=== PATIENT | female | born 1985 | race Caucasian/White ===

== ENCOUNTER 2016-10-05 08:46 | Emergency (ER) | payer SELFPAY ==
[~2016-10-05] VITALS: Wt 69.0 kg
[~2016-10-05 08:46] MED LIST: HYDR-842 PO
--- NOTE | 2016-10-05 10:46 | RADRPT ---
PROCEDURE: US Obstetrical 1st Trimester CLINICAL INDICATION: Vaginal bleeding TECHNIQUE: Multiple real-time images were acquired of the patient's maternal abdomen utilizing a curved array transducer. COMPARISON: None FINDINGS: There is a well implanted gestational sac within the fundus of the uterus with a mean sac diameter o f 2.64 cm which corresponds to a gestational sac age of 7 weeks 4 days. A yolk sac is identified. T here is a single pole with a crown-rump length of 0.66 cm which corresponds to a gestational a ge of 6 weeks 4 days. There is positive cardiac activity being a t 152 beats per minute. The right ovary measures 3.4 x 1.9 x 1.9 cm. The left ovary measures 2.7 x 2.5 x 1.5 cm. Vascular flow is demonstrated in each ovary. No adnexal mass or free fluid is identified IMPRESSION: 1. Single live intrauterine fetus which by ultrasound corresponds to a gestational age of 7 weeks 1 day plus or minus 3 days. The estimated date of delivery based on today's sonogram is 05/23/2017. 2. No adnexal mass or free fluid is identified. Physician Garth Date Time Electronically viewed and signed by Physician Garth on 10/05/2016 10:46 RH/
[2016-10-05] MEDS ORDERED: ONDA4TAB14 PO (10:52)
--- NOTE | 2016-10-05 10:56 | ERD ---
ER Documentation Chief Complaint Date/Time DATE: 10/05/16 TIME: 10:53 Chief Complaint VAG BLEED FOR THE PAST FEW DAYS. SMALL AMOUNT. NO DYSURIA HPI This 31-year-old female who is here for vaginal bleeding. Patient had some vaginal spotting for the past 3 days. She states she is 7 weeks by dates. Is having some cramps but no clots no back pain no fever no syncope dizziness shortness of breath or palpitations. She says the bleeding has been relatively constant for 3 days at a light spot but cramps are intermittent. She has not seen her resident hall director or had an ultrasound thus far. ROS All systems reviewed and are negative except as per history of present illness. Medications Home Meds Active Scripts Ondansetron (Ondansetron Odt) 4 Mg Tab.rapdis, 4 MG PO Q6H Y for NAUSEA AND/OR VOMITING, #10 TAB Prov:TRACEY IRELAND DO 10/05/16 Hydroxyzine Hcl* (Atarax*) 25 Mg Tab, 25 MG PO Q6H Y for ANXIETY, #15 TAB Prov:MARIANN HALE PA-C 05/28/16 Allergies Allergies: Coded Allergies: No Known Allergy (Unverified , 01/04/15) PMhx/Soc Medical and Surgical Hx: pt denies Surgical Hx Hx Psychiatric Problems: Yes (ANXIETY) Hx Alcohol Use: No Hx Substance Use: No Hx Tobacco Use: No FmHx Family History: No coronary disease Physical Exam Vitals Vital Signs Date Time Temp Pulse Resp B/P Pulse Ox O2 Delivery O2 Flow Rate FiO2 10/05/16 08:50 98.1 86 20 128/77 99 Physical Exam Const: Well-developed, well-nourished Head: Atraumatic, normocephalic Eyes: Normal Conjunctiva, PERRLA, EOMI, normal sclera, no nystagmus ENT: Normal External Ears, Nose and Mouth, moist mucus membranes. Neck: Full range of motion. No meningismus, no lymphadenopathy. Resp: Clear to auscultation bilaterally, no wheezing, rhonchi, rales Cardio: Regular rate and rhythm, no murmurs, S1 S2 present Abd: Soft, mild diffuse lower pelvic tenderness non distended. Normal bowel sounds, no guarding or rebound, no pulsitile abdominal masses or bruits Skin: No petechiae or rashes, no ecchymosis , no maculopapular rash Back: No midline or flank tenderness Ext: No cyanosis, or edema, FROM x 4, normal inspection, neurovascularly intact x 4 Neur: Awake and alert, STR 5/5 x 4, sensation intact x 4, no focal findings, cerebellum intact Psych: Normal Mood and Affect Procedures/MDM PROCEDURE: US Obstetrical 1st Trimester CLINICAL INDICATION: Vaginal bleeding TECHNIQUE: Multiple real-time images were acquired of the patient's maternal abdomen utilizing a curved array transducer. COMPARISON: None FINDINGS: There is a well implanted gestational sac within the fundus of the uterus with a mean sac diameter of 2.64 cm which corresponds to a gestational sac age of 7 weeks 4 days. A yolk sac is identified. There is a single pole with a crown-rump length of 0.66 cm which corresponds to a gestational age of 6 weeks 4 days. There is positive cardiac activity being a t 152 beats per minute. The right ovary measures 3.4 x 1.9 x 1.9 cm. The left ovary measures 2.7 x 2.5 x 1.5 cm. Vascular flow is demonstrated in each ovary. No adnexal mass or free fluid is identified IMPRESSION: 1. Single live intrauterine fetus which by ultrasound corresponds to a gestational age of 7 weeks 1 day plus or minus 3 days. The estimated date of delivery based on today's sonogram is 05/23/2017. 2. No adnexal mass or free fluid is identified. Physician Garth Date Time Electronically viewed and signed by Physician Garth on 10/05/2016 10:46 RH/ CC: TRACEY IRELAND DO Patient's blood type is O+ She does live IUP I gave her vaginal bleeding precautions and signs and symptoms to return as well as home care. HCG is pending at this time Departure Diagnosis: Primary Impression: Threatened Condition: Stable Patient Instructions: Possible Miscarriage (Threatened ) Referrals: ALANA CORBETT MD, APOSTOLOS A. DO Oct 05, 2016 10:55
== END 2016-10-05 11:03 | disposition home or self-care (01) ==
LOC: FTE 08:46
DX: O20.0 Threatened abortion (principal); Z3A.01 Less than 8 weeks gestation of pregnancy
CPT/HCPCS: 36415; 76801; 84702; 86900; 86901

== ENCOUNTER 2017-01-14 14:53 | Outpatient (CLI) | payer OTHER ==
[~2017-01-14] VITALS: Ht 124.5 cm; Wt 69.8 kg
[~2017-01-14 14:53] MED LIST changes: +ONDA4TAB14 PO
[2017-01-14 15:11] VITALS: BP 105/56; PULSE 85; Ht 124.5 cm; Wt 69.8 kg
[2017-01-14] MEDS ORDERED: PRENAT PO (15:12)
[2017-01-14 15:28] LABS: ADD UMIC NO; URINE BILIRUBIN (Dip) NEGATIVE (NEGATIVE); URINE BLOOD (Dip) NEGATIVE (NEGATIVE); URINE COLOR LT. YELLOW (YELLOW); URINE GLUCOSE (Dip) NEGATIVE (NEGATIVE); URINE KETONES (Dip) NEGATIVE (NEGATIVE); URINE LEUKOCYTE ESTERASE (Dip) NEGATIVE (NEGATIVE); URINE NITRITE (Dip) NEGATIVE (NEGATIVE); URINE TOTAL PROTEIN (Dip) NEGATIVE (NEGATIVE); URINE UROBILINOGEN (Dip) 0.2 E.U./dL (0.1-1.0)
--- NOTE | 2017-01-14 16:05 | RADRPT ---
PROCEDURE: Limited obstetric ultrasound CLINICAL INDICATION: Pain TECHNIQUE: Multiple transverse and longitudinal grayscale images of the pelvis were obtained montano sabdominally and transvaginally.. COMPARISON: 10/05/2016 FINDINGS: The cervix is closed with a length of 4.8 cm. There is a single viable intrauterine gestation. Cardiac activity is present with 148 beats per min mert. There is a vertex presentation. The placenta is anterior. There is no evidence for an abruption or placenta previa. RPTAT: AA IMPRESSION: Cervix length measures 4.8 cm. .Ubaldo Asher MD, Date Time Electronically viewed and signed by .Ubaldo Asher MD, on 01/14/2017 16:04 .S/
--- NOTE | 2017-01-14 16:43 | CONS ---
Date/Time of Note Date/Time of Note DATE: 01/14/17 TIME: 16:37 Consultation Date/Type/Reason Admit Date/Time January 14, 2070 OB triage consult Reason for Consultation This patient is a 31 years old 3 para 1 1 ,with EDC of May 18, 2017 which makes her 22 weeks and 2 days now. she came in complaining of pressure of the lower abdomen and vaginal area . On examination she is a well-developed well-nourished at term .Her abdomen is soft no contractions no tenderness no CVA tenderness slight general tenderness of the lower abdomen. her vital signs normal : blood pressure 105/56, pulse rate 85, respiration 18 , temperature 98.6,. Pelvic exam was not performed however she does not have any complaint of discharge or any leakage of fluid from vagina. heart tone appears to be normal ranging between 140-150/min. Urinalysis was performed and was normal no evidence of infection . Ultrasound study was performed: the cervix was closed and 4.8 cm in length, single viable intrauterine gestation with heart tone of 148 ,in vertex presentation, placenta was anterior, cervical length was 4.8 cm. No evidence of abruption or Laboratory Tests Test 01/14/17 14:50 Urine Color LT. YELLOW Urine Clarity CLEAR Urine pH 7.0 Urine Specific [place] <=1.005 Urine Ketones NEGATIVE Urine Nitrite NEGATIVE Urine Bilirubin NEGATIVE Urine Urobilinogen 0.2 E.U./dL Urine Leukocyte Esterase NEGATIVE Urine Hemoglobin NEGATIVE Urine Glucose NEGATIVE% Urine Total Protein NEGATIVE previa Constitutional: chills, diaphoresis, disoriented, febrile, improved, no complaints, other, poor po, requiring IVF, requiring O2 Eyes: discharge, no complaints, other, pain, redness, visual change ENT: bleeding, congestion, discharge, dysphagia, no complaints, other, pain, sore throat Respiratory: cough, no complaints, other, pain, pleuritic pain, shortness of breath, sputum, wheezing Cardiovascular: chest pain, edema, lightheadedness, no complaints, orthopenea, other, palpitations, paroxysmal nocturnal dyspnea Gastrointestinal: blood, constipation, decreased appetite, diarrhea, flatus, nausea, no complaints, other, pain, passing stool, vomiting Genitourinary: bleeding, discharge, dysuria, flank pain, hematuria, no complaints, other Musculoskeletal: back pain, bone/joint pain, neck pain, no complaints, other, restricted range of motion, swelling Skin: bruising, erythema, laceration, no complaints, other, pruritis, rash, skin lesions Endocrine: dry skin, no complaints, other, polydypsia, polyuria, temp intolerance Social History Smoking Status: Former smoker Exam/Review of Systems Vital Signs Vitals Vital Signs Date Time Temp Pulse Resp B/P Pulse Ox O2 Delivery O2 Flow Rate FiO2 01/14/17 15:11 98.6 85 105/56 Results Results 24 hrs Laboratory Tests Test 01/14/17 14:50 Urine Color LT. YELLOW Urine Clarity CLEAR Urine pH 7.0 Urine Specific [place] <=1.005 L Urine Ketones NEGATIVE Urine Nitrite NEGATIVE Urine Bilirubin NEGATIVE Urine Urobilinogen 0.2 E.U./dL Urine Leukocyte Esterase NEGATIVE Urine Hemoglobin NEGATIVE Urine Glucose NEGATIVE Urine Total Protein NEGATIVE TINY MACKENZIE MD Jan 14, 2017 16:43
== END 2017-01-14 16:46 | disposition home or self-care (01) ==
LOC: OBT 14:53 → L-D 14:54 → OBT 16:46
DX: O26.892 Other specified pregnancy related conditions, second trimester (principal); Z3A.22 22 weeks gestation of pregnancy
CPT/HCPCS: 76817; 81003; Z7500; G0463

== ENCOUNTER 2017-03-18 19:01 | Emergency (ER) | payer OTHER ==
[~2017-03-18] VITALS: Ht 149.9 cm; Wt 72.5 kg
[~2017-03-18 19:01] MED LIST changes: -HYDR-842 PO; -ONDA4TAB14 PO; +PRENAT PO
[2017-03-18 19:03] VITALS: Ht 149.9 cm; Wt 72.5 kg
[2017-03-18 19:56] LABS: HAAIG REFLEX REFLEX FILED
[2017-03-18 21:06] LABS: HEPATITIS B CORE ANTIBODY NEGATIVE (NEGATIVE)
--- NOTE | 2017-03-18 21:24 | ERA ---
ER Documentation Chief Complaint Date/Time DATE: 03/18/17 TIME: 21:20 Chief Complaint accidental needle stick with used lancet to left palm x 30 minutes ago HPI This is a 32-year-old female who presents with a chief complaint of needlestick. 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 Patient is 16 weeks . Patient is requesting lab work. Patient has no other complaints and denies all symptoms. ROS All systems reviewed and are negative except as per history of present illness. Medications Home Meds Reported Medications Multivit/Min/Fol Ac/Iron/Pren* ( S*) 1 Tab Tab, 1 TAB PO DAILY, TAB 01/14/17 Allergies Allergies: Coded Allergies: No Known Allergy (Unverified , 03/18/17) PMhx/Soc History of Surgery: No Anesthesia Reaction: No Hx Neurological Disorder: No Hx Respiratory Disorders: No Hx Cardiac Disorders: No Hx Psychiatric Problems: Yes (ANXIETY) Hx Miscellaneous Medical Probl: Yes (GESTATIONAL DM) Hx Alcohol Use: No Hx Substance Use: No Hx Tobacco Use: No Smoking Status: Never smoker Physical Exam Vitals Vital Signs Date Time Temp Pulse Resp B/P Pulse Ox O2 Delivery O2 Flow Rate FiO2 03/18/17 19:03 98.5 110 20 128/79 98 Physical Exam Const: [] Head: Atraumatic Eyes: Normal Conjunctiva ENT: Normal External Ears, Nose and Mouth. Neck: Full range of motion..~ No meningismus. Resp: Clear to auscultation bilaterally Cardio: Regular rate and rhythm, no murmurs Abd: Soft, non tender, non distended. Normal bowel sounds Skin: No petechiae or rashes Back: No midline or flank tenderness Ext: No cyanosis, or edema Neur: Awake and alert Psych: Normal Mood and Affect Results 24 hrs Laboratory Tests Test 03/18/17 19:45 Hepatitis B Surface Antigen NEGATIVE Hepatitis B Core Total Antibody NEGATIVE Hepatitis C Antibody NEGATIVE Procedures/MDM Patient is being worked up and evaluated for needlestick with a diabetic monitor of a patient who is positive hepatitis C. Patient is requesting lab work. Patient received a hepatitis screening panel as well as HIV test. I spoke with my attending and he agreed that these were the appropriate tests. Patient will be discharged as her vitals are stable and her current condition is appropriate for discharge. Patient will be given discharge instructions with return precautions. Patient has been advised to follow-up with ELE[facility] to present the following complaints as well as present to PCP or return to the emergency department in 3 months for repeat labs. Patient has also been advised and educated on the need for return visit in 6 months for repeat labs a second time. Patient has verbally acknowledged that she understands her current condition and management. Departure Diagnosis: Primary Impression: Needlestick injury accident Qualified Code: W27.3XXA - Needlestick injury accident, initial encounter Condition: Stable Patient Instructions: Standard Precautions: [place] Referrals: BETH WAGONER DO (PCP) Additional Instructions: Follow up with your PCP within the next 1-3 days for a more thorough evaluation and a possible referral to a specialist. Follow-up again with PCP in 3 months for repeat labs. Return the the emergency department immediately if symptoms worsen or change. If you have any questions regarding medications, ask your pharmacist or us before you leave. If any adverse reactions occur while taking your medications, discontinue the treatment and return to the emergency department immediately. Take your medications as directed, and complete the entire course of treatment. SPEEDY MEDLEY PA-C Mar 18, 2017 21:24
== END 2017-03-18 21:31 | disposition home or self-care (01) ==
LOC: FTE 19:01
DX: O9A.212 Injury, poisoning and certain other consequences of external causes complicating pregnancy, second trimester (principal); S61.432A Puncture wound without foreign body of left hand, initial encounter; W27.3XXA Contact with needle (sewing), initial encounter; Y92.9 Unspecified place or not applicable; Z3A.16 16 weeks gestation of pregnancy
CPT/HCPCS: 86704; 86709; 86803; 87340; 87536; Z7502; 99283